=== PATIENT | female | born 1955 | race Two or more races ===

== ENCOUNTER 2016-11-20 14:07 | Emergency (ER) | payer MEDICAID ==
[~2016-11-20] VITALS: Ht 162.6 cm; Wt 68.0 kg
[2016-11-20 13:51] VITALS: BP 119/72
[2016-11-20 14:56] VITALS: BP 132/57
[2016-11-20 14:58] LABS: APPEARANCE,URINE CLEAR; KETONES,URINE NEGATIVE (NEGATIVE); LEUKOCYTE ESTERASE ,URINE NEGATIVE (NEGATIVE); NITRITE,URINE NEGATIVE (NEGATIVE); PH,URINE 6.5 (4.5-8.0); PROTEIN,URINE 1+ (NEGATIVE); UROBILINOGEN,URINE NORMAL MG/DL (0.0-1.0)
[2016-11-20] MEDS ORDERED: LANTUS SOL100 UNIT/1 SUBQ (14:58)
[2016-11-20] MEDS ORDERED: CRESTOR10 M2 ORAL (14:58)
[2016-11-20] MEDS ORDERED: FUROSEMIDE20 M1 ORAL (14:58)
[2016-11-20] MEDS ORDERED: LISINOPRIL2.5 MG ORAL (14:58)
[2016-11-20] MEDS ORDERED: REGLAN5 MG ORAL (14:58)
[2016-11-20] MEDS ORDERED: GABAPENTIN100 MG ORAL (14:58)
[2016-11-20] MEDS ORDERED: FERROUS SULFAT325 MG ORAL ×2 (14:58→15:35)
[2016-11-20 15:06] LABS: BASOPHILS % (AUTO) 3.7 % (0.0-2.0); EOSINOPHILS % (AUTO) 6.5 % (0.0-3.0); LYMPHOCYTES % (AUTO) 20.7 % (20.0-45.0); MEAN CORPUSCULAR HEMOGLOBIN 31.3 PG (27.0-31.0); MEAN CORPUSCULAR HGB CONC 31.1 G/DL (32.0-36.0); MEAN CORPUSCULAR VOLUME 101 FL (80-99); MEAN PLATELET VOLUME 7.2 FL (6.5-10.1); NEUTROPHILS % (AUTO) 57.1 % (45.0-75.0); PLATELET COUNT 190 K/UL (150-450); RED BLOOD COUNT 3.59 M/UL (4.20-5.40); RED CELL DISTRIBUTION WIDTH 15.7 % (11.6-14.8); WHITE BLOOD COUNT 4.5 K/UL (4.8-10.8)
[2016-11-20 15:15] LABS: RBC,URINE 0-2 /HPF (0 - 2)
[2016-11-20 15:16] LABS: BACTERIA,URINE FEW /HPF; SQUAMOUS EPITHELIAL CELL,UR FEW /LPF (NONE/OCC); WBC,URINE 0-2 /HPF (0 - 2)
[2016-11-20 15:17] LABS: ALANINE AMINOTRANSFERASE 14 U/L (3-33); ALBUMIN/GLOBULIN RATIO 1.6 (1.0-2.7); ANION GAP 16 (5-15); ASPARTATE AMINO TRANSFERASE 17 U/L (5-40); CALCIUM 9.1 mg/dL (8.6-10.2); CARBON DIOXIDE 24 mEQ/L (20-30); CHLORIDE 98 mEQ/L (98-107); CREATININE 0.8 mg/dL (0.5-0.9); GLOMERULAR FILTRATION RATE > 60 mL/min (>60); HEMOLYSIS 4; POTASSIUM 4.1 mEQ/L (3.4-4.9); SODIUM 138 mEQ/L (135-145)
[2016-11-20 15:25] LABS: TROPONIN I < 0.30 ng/mL (<=0.30)
[2016-11-20 15:28] LABS: CKMB < 1.5 ng/mL (< 3.8)
[2016-11-20 15:34] LABS: REFLEX LACTIC ACID YES OR NO YES
[2016-11-20] MEDS ORDERED: METOCLOPRAMIDE H5 M1 ORAL (15:35)
[2016-11-20] MEDS ORDERED: [UNRECOGNIZED DRUG - OTHER] PO (15:35)
[2016-11-20] MEDS ORDERED: ASPIR 8181 MG ORAL (15:35)
[2016-11-20] MEDS ORDERED: LISINOPRIL20 MG ORAL (15:35)
[2016-11-20] MEDS ORDERED: OMEPRAZOLE20 M2 ORAL (15:35)
--- NOTE | 2016-11-20 15:54 | Emergency Room Report ---
History of Present Illness General Chief Complaint: Headache Source: Patient, EMS Present Illness HPI 61-year-old female presents to ED for evaluation. Patient states her last 2 days she's had bodyaches and headache with cough. Cough is productive with yellowish sputum. Headache is across for head, throbbing, 7/10, nonradiating. Denies neck stiffness, photophobia, blurry vision. Denies fevers or chills. Patient has history of lung cancer. Denies chest pain. States shortness of breath at rest. No other aggravating or relieving factors. Denies any other associated symptoms Allergies: Coded Allergies: No Known Allergies (Unverified , 11/20/16) Patient History Past Medical History: DM, HTN, other - lung ca Past Surgical History: none Pertinent Family History: none Social History: Denies: alcohol use, drug use, smoking Now: No Immunizations: UTD Reviewed Nursing Documentation: PMH: Agreed, PSxH: Agreed Nursing Documentation-PMH Past Medical History: No History, Except For Hx Hypertension: Yes Hx Diabetes: Yes Hx Cancer: Yes - lung ca Review of Systems All Other Systems: negative except mentioned in HPI Physical Exam Vital Signs Date Time Temp Pulse Resp B/P Pulse Ox O2 Delivery O2 Flow Rate FiO2 11/20/16 13:39 97.2 86 20 119/72 96 Nasal Cannula 2.0 Sp02 EP Interpretation: reviewed, normal General Appearance: no apparent distress, alert, GCS 15, non-toxic Head: normocephalic, atraumatic Eyes: bilateral eye PERRL, bilateral eye normal inspection ENT: hearing grossly normal, normal pharynx, no angioedema, normal voice Neck: full range of motion, supple/symm/no masses Respiratory: chest non-tender, crackles, speaking full sentences Cardiovascular #1: regular rate, rhythm, no edema Cardiovascular #2: 2+ carotid (R), 2+ carotid (L), 2+ radial (R), 2+ radial (L) , 2+ dorsalis pedis (R), 2+ dorsalis pedis (L) Gastrointestinal: normal bowel sounds, non tender, soft, non-distended, no guarding, no rebound Rectal: deferred Genitourinary: normal inspection, no CVA tenderness Musculoskeletal: back normal, gait/station normal, normal range of motion, non- tender Neurologic: alert, oriented x3, responsive, motor strength/tone normal, sensory intact, speech normal Psychiatric: judgement/insight normal, memory normal, mood/affect normal, no suicidal/homicidal ideation Reflexes: 3+ bicep (R), 3+ bicep (L), 3+ tricep (R), 3+ tricep (L), 3+ knee (R) , 3+ knee (L) Skin: normal color, no rash, warm/dry, well hydrated Lymphatic: no adenopathy Medical Decision Making Diagnostic Impression: Primary Impression: Dyspnea Qualified Codes: R06.00 - Dyspnea, unspecified Additional Impressions: Lung cancer Qualified Codes: C34.90 - Malignant neoplasm of unspecified part of unspecified bronchus or lung Pneumonia Qualified Codes: J18.9 - Pneumonia, unspecified organism ER Course Hospital Course 61-year-old F presenting to ED with SOB, h/o lung cancer Differential diagnoses include: Pneumonia, pneumothorax, fluid overload Clinical course Patient placed on stretcher. On patient monitor. After initial history and physical, I ordered labs, IV fluids, EKG, chest x-ray, blood cultures, UA. Patient placed on nasal cannula with O2 saturation improving Labs -leukopenia noted, hemoglobin/hematocrit stable, electrolytes ok, lactate okay troponins negative CXR - portacatch in place. bilateral opacities suggestive of mass. ? infiltrate noted EKG - NSR, no acute changes abx given. Case discussed with Dr. Hurley and he agreed to the patient to his service for further care and support I feel this is a highly complex case requiring extensive working including EKG/ Rhythm strip, Xray/CT/US, Blood/urine lab work, repeat exams while in ED, and administration of strong opiates/narcotics for pain control, admission to hospital or close patient follow up. Diagnosis - pneumonia, dyspnea, lung cancer Patient admitted to telemetry in serious condition Labs Test 11/20/16 14:30 11/20/16 14:50 White Blood Count 4.5 K/UL (4.8-10.8) Red Blood Count 3.59 M/UL (4.20-5.40) Hemoglobin 11.2 G/DL (12.0-16.0) Hematocrit 36.2 % (37.0-47.0) Mean Corpuscular Volume 101 FL (80-99) Mean Corpuscular Hemoglobin 31.3 PG (27.0-31.0) Mean Corpuscular Hemoglobin Concent 31.1 G/DL (32.0-36.0) Red Cell Distribution Width 15.7 % (11.6-14.8) Platelet Count 190 K/UL (150-450) Mean Platelet Volume 7.2 FL (6.5-10.1) Neutrophils (%) (Auto) 57.1 % (45.0-75.0) Lymphocytes (%) (Auto) 20.7 % (20.0-45.0) Monocytes (%) (Auto) 12.0 % (1.0-10.0) Eosinophils (%) (Auto) 6.5 % (0.0-3.0) Basophils (%) (Auto) 3.7 % (0.0-2.0) Sodium Level 138 mEQ/L (135-145) Potassium Level 4.1 mEQ/L (3.4-4.9) Chloride Level 98 mEQ/L (98-107) Carbon Dioxide Level 24 mEQ/L (20-30) Anion Gap 16 (5-15) Blood Urea Nitrogen 11 mg/dL (7-23) Creatinine 0.8 mg/dL (0.5-0.9) Estimat Glomerular Filtration Rate > 60 mL/min (>60) Glucose Level 216 mg/dL (74-106) Lactic Acid Level 2.20 mmol/L (0.66-2.22) Calcium Level 9.1 mg/dL (8.6-10.2) Total Bilirubin 0.2 mg/dL (0.0-1.2) Aspartate Amino Transf (AST/SGOT) 17 U/L (5-40) Alanine Aminotransferase (ALT/SGPT) 14 U/L (3-33) Alkaline Phosphatase 129 U/L (35-104) Total Creatine Kinase 30 U/L (26-140) Creatine Kinase MB < 1.5 ng/mL (< 3.8) Creatine Kinase MB Relative Index 5.0 Troponin I < 0.30 ng/mL (<=0.30) Pro-B-Type Natriuretic Peptide 333 pg/mL (0-125) Total Protein 6.0 g/dL (6.6-8.7) Albumin 3.7 g/dL (3.5-5.2) Globulin 2.3 g/dL Albumin/Globulin Ratio 1.6 (1.0-2.7) Urine Color Pale yellow Urine Appearance Clear Urine pH 6.5 (4.5-8.0) Urine Specific Aroda 1.010 (1.005-1.035) Urine Protein 1+ (NEGATIVE) Urine Glucose (UA) 4+ (NEGATIVE) Urine Ketones Negative (NEGATIVE) Urine Occult Blood Negative (NEGATIVE) Urine Nitrite Negative (NEGATIVE) Urine Bilirubin Negative (NEGATIVE) Urine Urobilinogen Normal MG/DL (0.0-1.0) Urine Leukocyte Esterase Negative (NEGATIVE) Urine RBC 0-2 /HPF (0 - 2) Urine WBC 0-2 /HPF (0 - 2) Urine Squamous Epithelial Cells Few /LPF (NONE/OCC) Urine Bacteria Few /HPF (NONE) EKG Diagnostic Results Rate: normal Rhythm: NSR ST Segments: no acute changes ASA given to the pt in ED: No Rhythm Strip Diag. Results EP Interpretation: yes Rhythm: NSR, no PVC's, no ectopy Chest X-Ray Diagnostic Results EP Interpretation: Yes Findings: no pneumothorax, no acute cardiopulmonary disease, other - portacath. mass noted bilaterally. Number of Views: 1 Last Vital Signs Date Time Temp Pulse Resp B/P Pulse Ox O2 Delivery O2 Flow Rate FiO2 11/20/16 14:56 97.2 71 32 132/57 100 Nasal Cannula 2.0 Status: improved Disposition: ADMITTED INPATIENT Condition: Serious NADIR CLAIRE M.D. Nov 20, 2016 15:54
[2016-11-20] MEDS ORDERED: Ketorolac 30mg Inj IV ONE (16:00)
[2016-11-20 16:19] VITALS: BP 120/44
--- NOTE | 2016-11-20 17:00 | Diagnostic Imaging Report ---
Indication: SOB Technique: One view of the chest Comparison: none Findings: There is a left chest port catheter in place. There is volume loss of the right lung with rightward mediastinal shift. Opacity in the right hilar and suprahilar region demonstrates areas of central honeycombing. Uncertain as to whether this represents tumor or chronic fibrotic change. This could also represent a focal area of infiltrate with air bronchograms. Multiple round masses are seen throughout both lungs a more numerous on the left than on the right. The largest is in the left lung apex, measures 4.8 cm in diameter. There is small right pleural effusion. Left pleural space is clear. No definite infiltrate on the left. The heart is borderline enlarged Impression: Right perihilar opacity. Given stated clinical history lung carcinoma, this could represent primary tumor. However, this could also represent an area of acute infiltrate or chronic fibrotic change. Right lung volume loss, likely related to the above Multiple bilateral lung masses Small right pleural effusion Borderline cardiomegaly Port catheter
[2016-11-20] MEDS ORDERED: Cefepime 1gm vial ONE (17:10)
[2016-11-20] MEDS ORDERED: Cefepime HCl 1 GM in NS 55 ML IV ONE (17:15)
[2016-11-20] MEDS ORDERED: Azithromycin 500 MG in NS 275 ML IV ONE (17:15)
[2016-11-20] MEDS ORDERED: Azithromycin Inj IV ONE (17:57)
[2016-11-20] MEDS ORDERED: LORazepam Inj 2mg/ml 1ml IV PRN (20:30)
[2016-11-20] MEDS ORDERED: Nitroglycerin Subl 0.4mg tab (Bottle Of 25) SL PRN (20:30)
[2016-11-20] MEDS ORDERED: Morphine Sulfate 2mg/ml Inj IVP PRN (20:30)
[2016-11-20] MEDS ORDERED: DuoNeb 0.5-3(2.5)mg/3ml neb HHN PRN (20:30)
[2016-11-20] MEDS ORDERED: Promethazine/Codeine 5ml UD ORAL PRN (20:30)
[2016-11-20 20:31] VITALS: BP 121/70
[2016-11-20] MEDS ORDERED: NovoLOG Insulin Flexpen SUBQ SCH (21:00)
[2016-11-20] MEDS ORDERED: Heparin 5000 units/ml inj SUBQ SCH (21:00)
[2016-11-20] MEDS ORDERED: Theophylline ER 100mg ORAL SCH (21:00)
[2016-11-20 21:15] VITALS: BP 121/70
[2016-11-21] MEDS ORDERED: Solu-MEDROL 125mg Inj IV SCH
[2016-11-21] MEDS ORDERED: Lisinopril 20mg tab ORAL SCH (09:00)
--- NOTE | 2016-11-24 17:05 | Cardiology Report ---
APPROVED REPORT EKG Measurement Heart [id number] Normal sinus rhythm Normal ECG
== END 2016-11-20 21:15 | disposition short-term general hospital (02) ==
LOC: ENRESERVTM → ENRESERVDT → EDBD 14:07 → EMR 15:03 → EDBEDREQ 18:53 → EMR 21:15 → CANBEDREQ 21:50
DX: C34.90 Malignant neoplasm of unspecified part of unspecified bronchus or lung (principal); J18.9 Pneumonia, unspecified organism; R06.00 Dyspnea, unspecified; E11.9 Type 2 diabetes mellitus without complications; I10 Essential (primary) hypertension
CPT/HCPCS: 36415; 71010; 80053; 81003; 82550; 82553; 83605; 83880; 84484; 85025; 87040; 93005; 96360; 96374; 96375; 99285; J0456; J0692; J1885; J7050